=== PATIENT | male | born 1980 | race Caucasian/White ===

== ENCOUNTER → 2016-10-24 | Outpatient (CLI) | payer OTHER ==
[~2016-10-24] MED LIST: ACYCLOVIR800 MG PO; ALBUTEROL0.09 MG/A2 IH; AMOXICILLIN500 MG PO; BENTYL10 MG PO; BIAXIN500 MG PO; CLARITIN10 MG PO; FLEXERIL5 MG PO; FLONASE ALLERG9.9 ML NAS; HUMALOG100 U/ML SC; HYDROCODONE BIT1 T11 PO; KEFLEX500 MG PO; LANTUS100 U/ML SC; MOTRIN800 MG PO; NKHM; NORFLEX100 MG PO; ROBITUSSIN AC 110 ML PO; TRAMADOL HCL50 MG PO; ZITHROMAX250 MG PO
[2016-10-24 10:50] LABS: BASO # 0.1 10*3/uL (0.0-0.1); BASO % 0.7 % (0.0-1.0); EOS # 0.3 10*3/uL (0.0-0.4); EOS % 4.1 % (1.0-4.0); HEMATOCRIT 48.6 % (42.0-52.0); HEMOGLOBIN 17.2 g/dl (14.0-18.0); LYMPH # 2.3 10*3/uL (1.3-4.4); LYMPH % 31.8 % (27.0-41.0); MEAN CELL VOLUME 90.8 fl (80.0-94.0); MEAN CORPUSCULAR HGB 32.1 pg (27.0-31.0); MEAN CORPUSCULAR HGB CONC 35.4 g/dl (33.0-37.0); MEAN PLATELET VOLUME 9.6 fl (9.6-12.3); MONO # 0.5 10*3/uL (0.1-1.0); MONO % 6.8 % (3.0-9.0); NEUT # 4.1 10*3/uL (2.3-7.9); NEUT % 56.3 % (47.0-73.0); PLATELET COUNT AUTOMATED 217 10*3/uL (130-400); RED BLOOD COUNT 5.35 10*6/uL (4.50-5.90); RED CELL DISTRI WIDTH 12.4 % (0-14.5); WHITE BLOOD COUNT 7.3 10*3/uL (4.8-10.8)
[2016-10-24 11:15] LABS: ALBUMIN 4.1 gm/dl (3.1-4.5); ALKALINE PHOSPHATASE 103 U/L (45-117); BILIRUBIN, DIRECT 0.1 mg/dL (0.0-0.2); BILIRUBIN, TOTAL 0.8 mg/dl (0.2-1.0); BUN 12 mg/dl (7-24); CARBON DIOXIDE 30 mmol/L (21-32); CHLORIDE 104 mmol/L (98-107); EST GLOM FILT AFRICAN AMERICAN > 60 ml/min; GLUCOSE 167 mg/dL (65-99); POTASSIUM 3.8 mmol/L (3.5-5.1); SGOT/AST 41 IU/L (3-35); SGPT/ALT 64 U/L (12-78); SODIUM 143 mmol/L (136-145); TOTAL PROTEIN 7.9 gm/dL (6.4-8.2)
[2016-10-24 11:26] LABS: HEMOGLOBIN A1c 5.5 % (4.8-5.6)
== END | disposition home or self-care (01) ==
LOC: LAB 10:22
PROVIDERS: Family Medicine
DX: E11.9 Type 2 diabetes mellitus without complications (principal)

== ENCOUNTER 2019-11-19 21:03 | Inpatient (IN) | payer OTHER ==
[~2019-11-19] VITALS: Ht 185.4 cm; Wt 117.0 kg
[2019-11-19 21:07] VITALS: BP 150/82
[2019-11-19 21:21] VITALS: BP 135/78
[2019-11-19 21:44] LABS: BASO # 0.1 10*3/uL (0.0-0.1); BASO % 0.6 % (0.0-1.0); EOS # 0.1 10*3/uL (0.0-0.4); EOS % 1.6 % (1.0-4.0); HEMATOCRIT 41.9 % (42.0-52.0); HEMOGLOBIN 15.1 g/dl (14.0-18.0); LYMPH # 1.3 10*3/uL (1.3-4.4); LYMPH % 16.1 % (27.0-41.0); MEAN CELL VOLUME 89.7 fl (80.0-94.0); MEAN CORPUSCULAR HGB 32.3 pg (27.0-31.0); MEAN PLATELET VOLUME 10.3 fl (9.6-12.3); MONO # 0.7 10*3/uL (0.1-1.0); MONO % 8.3 % (3.0-9.0); NEUT % 72.9 % (47.0-73.0); PLATELET COUNT AUTOMATED 204 10*3/uL (130-400); RED BLOOD COUNT 4.67 10*6/uL (4.50-5.90); RED CELL DISTRI WIDTH 12.5 % (0-14.5); WHITE BLOOD COUNT 8.2 10*3/uL (4.8-10.8)
[2019-11-19 22:00] LABS: ALBUMIN 3.7 gm/dl (3.1-4.5); ALKALINE PHOSPHATASE 113 U/L (45-117); BUN 10 mg/dl (7-24); CHLORIDE 104 mmol/L (98-107); CREATININE 1.51 mg/dL (0.70-1.30); POTASSIUM 4.6 mmol/L (3.5-5.1); SGOT/AST 52 IU/L (3-35); SGPT/ALT 49 U/L (12-78); SODIUM 134 mmol/L (136-145); TOTAL PROTEIN 7.8 gm/dL (6.4-8.2)
[2019-11-19 23:00] VITALS: BP 114/62
[2019-11-20 00:10] VITALS: BP 123/55
[2019-11-20 01:06] VITALS: BP 110/50
--- NOTE | 2019-11-20 01:59 | NUR ---
PT AMBULATORY TO BATHROOM GAIT STEADY. STATES HE IS FEELING BETTER. BJ MONSIVAIS RN.
[2019-11-20 02:33] VITALS: BP 126/78
--- NOTE | 2019-11-20 02:33 | NUR ---
A 39, admitted to , under the services of JIMMY Rivas DO with a diagnosis of REAGAN; SEVERE SEPSIS; VIRAL URI. Chief complaint is COUGH, COLD & CHILLS AT HOME. Patient arrived via stretcher from ER. Monitor applied. Initial assessment completed. Vital signs taken and recorded. JIMMY RIVAS DO notified of admission to the unit. Orders received. See assessment for past medical history, medications and allergies. Patient and/or family oriented to unit. [facility]. Clothing/patient valuable form completed. DONNA FOX
--- NOTE | 2019-11-20 02:55 | NUR ---
CALLED DR. VELASCO WITH CRITICAL LACTIC ACID OF 2.5.
[2019-11-20] MEDS ORDERED: TRULICITY0.75 MG/0. SC (03:55)
[2019-11-20] MEDS ORDERED: GLUCOPHAGE500 M1 PO (03:56)
[2019-11-20 04:27] LABS: BILIRUBIN NEGATIVE (NEGATIVE); BLOOD NEGATIVE (NEGATIVE); CLARITY CLEAR (CLEAR); COLOR YELLOW (YELLOW); GLUCOSE 2+ (NEGATIVE); KETONE NEGATIVE (NEGATIVE); LEUKO ESTERASE NEGATIVE (NEGATIVE); NITRITE NEGATIVE (NEGATIVE); SPECIFIC GRAVITY 1.005 (1.005-1.030); UROBILINOGEN 0.2 E.U./dl (0.2-1.0)
[2019-11-20 04:33] LABS: URINE AMPHETAMINES < 1000 (1000ng/ml); URINE BARBITURATES < 200 (200ng/ml); URINE BENZODIAZEPINES < 200 (200ng/ml); URINE CANNABINOIDS (THC) < 50 (50ng/ml); URINE COCAINE < 300 (300ng/ml); URINE METHADONE < 300 (300ng/ml); URINE OPIATES < 300 (300ng/ml); WBC 0-2 wbc/hpf (0-5)
[2019-11-20 04:36] LABS: URINE PHENCYCLIDINE < 25 (25ng/ml)
--- NOTE | 2019-11-20 04:47 | NUR ---
URINE SENT FOR UA/C&S, URINE DRUG SCREE, URINE STREP & URINE PNEUMONIAE.
[2019-11-20 05:35] LABS: ALBUMIN 3.5 gm/dl (3.1-4.5); ALKALINE PHOSPHATASE 97 U/L (45-117); BUN 9 mg/dl (7-24); CHLORIDE 107 mmol/L (98-107); CHOLESTEROL 134 mg/dL (<200); CREATININE 1.32 mg/dL (0.70-1.30); FREE T4 0.63 ng/dl (0.76-1.46); HDL CHOLESTEROL 25 mg/dl (40-60); LDL CHOLESTEROL 73 mg/dL (9-159); PHOSPHOROUS 2.4 mg/dL (2.5-4.9); SGOT/AST 19 IU/L (3-35); SGPT/ALT 37 U/L (12-78); SODIUM 139 mmol/L (136-145); TOTAL PROTEIN 7.2 gm/dL (6.4-8.2); TRIGLYCERIDES 181 mg/dl (<150); VLDL CHOLESTEROL 36 mg/dL (6-40)
[2019-11-20 06:14] LABS: BASO % 0.5 % (0.0-1.0); EOS % 0.1 % (1.0-4.0); HEMATOCRIT 40.5 % (42.0-52.0); HEMOGLOBIN 13.7 g/dl (14.0-18.0); LYMPH # 1.4 10*3/uL (1.3-4.4); LYMPH % 18.9 % (27.0-41.0); MEAN CELL VOLUME 90.8 fl (80.0-94.0); MEAN CORPUSCULAR HGB 30.7 pg (27.0-31.0); MEAN CORPUSCULAR HGB CONC 33.8 g/dl (33.0-37.0); MEAN PLATELET VOLUME 10.3 fl (9.6-12.3); MONO # 0.7 10*3/uL (0.1-1.0); MONO % 9.4 % (3.0-9.0); NEUT # 5.3 10*3/uL (2.3-7.9); NEUT % 70.7 % (47.0-73.0); PLATELET COUNT AUTOMATED 190 10*3/uL (130-400); RED BLOOD COUNT 4.46 10*6/uL (4.50-5.90); RED CELL DISTRI WIDTH 12.5 % (0-14.5); WHITE BLOOD COUNT 7.5 10*3/uL (4.8-10.8)
--- NOTE | 2019-11-20 07:31 | NUR ---
PT. REFUSES INSULIN COVERAGE AT THIS TIME. REQUESTING METFORMIN.
[2019-11-20 07:44] LABS: VITAMIN D, 25-HYDROXY 19.2 ng/mL (30-100)
--- NOTE | 2019-11-20 10:26 | NUR ---
Nurse to nurse report given to EVERETT Iyv.
--- NOTE | 2019-11-20 10:30 | NUR ---
Left message at [facility] notifying [facility] that patient is being transferred to [facility].
--- NOTE | 2019-11-20 11:00 | NUR ---
TOOK OVER CARE OF PT AT THIS TIME. PT RESTING IN BED. RESPIRATIONS EASY AND UNLABORED ON ROOM AIR. COUGH NOTED, ASSESSMENT COMPLETE. PT DENIES PAIN. CALL LIGHT IN REACH.
--- NOTE | 2019-11-20 11:51 | NUR ---
PT GIVEN TYLENOL AT THIS TIME FOR HEADACHE. WILL MONITOR FOR EFFECTIVENESS.
[2019-11-20 12:00] VITALS: BP 118/79
--- NOTE | 2019-11-20 12:50 | NUR ---
TYLENOL EFFECTIVE PER PT.
--- NOTE | 2019-11-20 15:03 | NUR ---
Shift chart check completed.
[2019-11-20 16:00] VITALS: BP 129/80
--- NOTE | 2019-11-20 18:09 | NUR ---
PT RESTING IN BED, NO COMPLAINTS VOICED AT THIS TIME. CALL LIGHT IN REACH.
[2019-11-20 20:00] VITALS: BP 133/80
--- NOTE | 2019-11-20 20:30 | NUR ---
DR COREY NOTIFIED OF POSITIVE BLOOD CULTURES
--- NOTE | 2019-11-20 23:14 | NUR ---
TYLENOL GIVEN PER PT REQUEST FOR C/O HEADACHE. CALL LIGHT IN REACH.
[2019-11-21] VITALS: BP 129/89
--- NOTE | 2019-11-21 01:05 | NUR ---
TYLENOL EFFECTIVE FOR PAIN. PT SLEEPING, RESP EASY AND REGULAR ON RA. CALL LIGHT IN REACH.
[2019-11-21 07:03] LABS: BASO # 0.1 10*3/uL (0.0-0.1); BASO % 0.7 % (0.0-1.0); EOS # 0.4 10*3/uL (0.0-0.4); EOS % 5.8 % (1.0-4.0); HEMATOCRIT 40.9 % (42.0-52.0); LYMPH # 2.5 10*3/uL (1.3-4.4); LYMPH % 36.8 % (27.0-41.0); MEAN CELL VOLUME 92.3 fl (80.0-94.0); MEAN CORPUSCULAR HGB 31.6 pg (27.0-31.0); MEAN CORPUSCULAR HGB CONC 34.2 g/dl (33.0-37.0); MEAN PLATELET VOLUME 9.8 fl (9.6-12.3); MONO # 0.9 10*3/uL (0.1-1.0); MONO % 12.5 % (3.0-9.0); NEUT % 43.8 % (47.0-73.0); PLATELET COUNT AUTOMATED 177 10*3/uL (130-400); RED BLOOD COUNT 4.43 10*6/uL (4.50-5.90); RED CELL DISTRI WIDTH 12.9 % (0-14.5); WHITE BLOOD COUNT 6.9 10*3/uL (4.8-10.8)
--- NOTE | 2019-11-21 07:15 | NUR ---
Arrived on shift, introduced to patient, white board updated, bed in low locked, position, call light withing reach. no needs voiced at this time.
[2019-11-21 07:35] LABS: BUN 9 mg/dl (7-24); CHLORIDE 110 mmol/L (98-107); CREATININE 1.05 mg/dL (0.70-1.30); SODIUM 142 mmol/L (136-145)
[2019-11-21 08:00] VITALS: BP 130/78
--- NOTE | 2019-11-21 09:00 | NUR ---
[employer] in to talk to patient. Patient states lives at home with . There are no steps in the home. Physician: shwetha durant [facility]acy: [facility] Home health services: none Patient's level of ADLs: INDEPENDENT Patient has working utilities: all working DME: none Follow-up physician's appointment after d/c: will be made by hospitalist nurse director upon discharge Does patient want to access PORTAL?: no Discharge plan discussed with patient, he lives at home with he is independent in adls and ambulation, works, drives, he states he will return home when medically stable and denies any home needs. SHANTI MEEHAN
--- NOTE | 2019-11-21 09:23 | NUR ---
Shift chart check completed.
[2019-11-21 12:00] VITALS: BP 120/85
--- NOTE | 2019-11-21 13:31 | NUR ---
PATIENT C/O HEADACHE MEDICATED WITH TYLENOL ORDERED.
--- NOTE | 2019-11-21 13:32 | NUR ---
PATIENT C/O HEADACHE, MEDICATED WITH TYLENOL ORDERED PRN.
[2019-11-21 16:00] VITALS: BP 133/79
[2019-11-21 20:00] VITALS: BP 112/67
[2019-11-22] VITALS: BP 113/60; BP 126/74
--- NOTE | 2019-11-22 07:05 | NUR ---
ARRIVED ON SHIFT, INTRODUCED TO PATIENT, BED IN LOW LOCKED POSITION, CALL LIGHT WITHIN REACH, NO NEEDS VOICED AT THIS TIME. WHITE BOARD UPDATED.
[2019-11-22 08:00] VITALS: BP 124/62
[2019-11-22 08:00] LABS: BASO # 0.1 10*3/uL (0.0-0.1); BASO % 0.7 % (0.0-1.0); EOS # 0.5 10*3/uL (0.0-0.4); HEMATOCRIT 42.6 % (42.0-52.0); HEMOGLOBIN 14.6 g/dl (14.0-18.0); LYMPH # 2.8 10*3/uL (1.3-4.4); LYMPH % 37.5 % (27.0-41.0); MEAN CELL VOLUME 93.4 fl (80.0-94.0); MEAN CORPUSCULAR HGB CONC 34.3 g/dl (33.0-37.0); MEAN PLATELET VOLUME 10.2 fl (9.6-12.3); MONO # 0.6 10*3/uL (0.1-1.0); MONO % 8.2 % (3.0-9.0); NEUT # 3.5 10*3/uL (2.3-7.9); NEUT % 46.7 % (47.0-73.0); PLATELET COUNT AUTOMATED 207 10*3/uL (130-400); RED BLOOD COUNT 4.56 10*6/uL (4.50-5.90); RED CELL DISTRI WIDTH 12.8 % (0-14.5); WHITE BLOOD COUNT 7.5 10*3/uL (4.8-10.8)
[2019-11-22 08:50] LABS: BUN 9 mg/dl (7-24); CHLORIDE 106 mmol/L (98-107); CREATININE 1.13 mg/dL (0.70-1.30); POTASSIUM 3.8 mmol/L (3.5-5.1); SODIUM 140 mmol/L (136-145)
[2019-11-22] MEDS ORDERED: DOXYCYCLINE100 M3 PO (10:42)
[2019-11-22] MEDS ORDERED: TAMIFLU 75MG CA75 MG PO (10:42)
[2019-11-22 12:00] VITALS: BP 132/80
--- NOTE | 2019-11-22 13:40 | NUR ---
Discharge instructions reviewed with patient/family. Patient receptive and verbalizes understanding. Follow-up care arranged. Written instructions given to patient/family, IV REMOVED, REFUSED W/C FOR DISCHARGE. DANIELA MENJIVAR
== END 2019-11-22 13:40 | disposition home or self-care (01) | DRG 871 ==
LOC: ED 21:03 → 5E 11-20 01:45 → EDHOLD 11-20 01:45 → 4E 11-20 02:17 → 5E 11-20 11:22
PROVIDERS: Emergency Medicine; Internal Medicine; ADMIT Internal Medicine
DX: A41.9 Sepsis, unspecified organism (principal); N17.0 Acute kidney failure with tubular necrosis; E87.1 Hypo-osmolality and hyponatremia; R65.20 Severe sepsis without septic shock; E80.6 Other disorders of bilirubin metabolism; E11.65 Type 2 diabetes mellitus with hyperglycemia; K76.0 Fatty (change of) liver, not elsewhere classified; J06.9 Acute upper respiratory infection, unspecified; E83.39 Other disorders of phosphorus metabolism; R09.02 Hypoxemia; B95.61 Methicillin susceptible Staphylococcus aureus infection as the cause of diseases classified elsewhere; Z79.899 Other long term (current) drug therapy; Z79.4 Long term (current) use of insulin; Z90.49 Acquired absence of other specified parts of digestive tract; Z98.52 Vasectomy status; Z82.49 Family history of ischemic heart disease and other diseases of the circulatory system

== ENCOUNTER → 2020-08-27 | Outpatient (CLI) | payer OTHER ==
[~2020-08-27] MED LIST changes: +DOXYCYCLINE100 M3 PO; +GLUCOPHAGE500 M1 PO; +TAMIFLU 75MG CA75 MG PO; +TRULICITY0.75 MG/0. SC
== END | disposition home or self-care (01) ==
LOC: COVID19 03:10
PROVIDERS: ATTEND Physician Assistant Medical
DX: U07.1 COVID-19 (principal)

== ENCOUNTER 2021-02-14 21:21 | Emergency (ER) | payer OTHER ==
[2021-02-14 23:25] LABS: BASO # 0.1 10*3/uL (0.0-0.1); BASO % 0.4 % (0.0-1.0); EOS # 0.1 10*3/uL (0.0-0.4); EOS % 0.9 % (1.0-4.0); HEMATOCRIT 46.5 % (42.0-52.0); LYMPH # 0.6 10*3/uL (1.3-4.4); LYMPH % 5.5 % (27.0-41.0); MEAN CELL VOLUME 87.9 fl (80.0-94.0); MEAN CORPUSCULAR HGB 31.4 pg (27.0-31.0); MEAN CORPUSCULAR HGB CONC 35.7 g/dl (33.0-37.0); MEAN PLATELET VOLUME 10.2 fl (9.6-12.3); MONO # 0.7 10*3/uL (0.1-1.0); MONO % 5.8 % (3.0-9.0); NEUT # 9.7 10*3/uL (2.3-7.9); PLATELET COUNT AUTOMATED 215 10*3/uL (130-400); RED BLOOD COUNT 5.29 10*6/uL (4.50-5.90); RED CELL DISTRI WIDTH 12.3 % (0-14.5); WHITE BLOOD COUNT 11.2 10*3/uL (4.8-10.8)
[2021-02-14 23:40] LABS: ALKALINE PHOSPHATASE 158 U/L (45-117); BUN 14 mg/dl (7-24); CHLORIDE 103 mmol/L (98-107); CREATININE 1.27 mg/dL (0.70-1.30); POTASSIUM 3.9 mmol/L (3.5-5.1); SGOT/AST 23 IU/L (3-35); SGPT/ALT 46 U/L (12-78); SODIUM 134 mmol/L (136-145); TOTAL PROTEIN 8.2 gm/dL (6.4-8.2)
[2021-02-15 00:28] LABS: BILIRUBIN Negative (Negative); BLOOD Negative (Negative); CLARITY Clear (Clear); COLOR Yellow (Yellow); GLUCOSE 3+ (Negative); KETONE 2+ (Negative); LEUKO ESTERASE Negative (Negative); NITRITE Negative (Negative); SPECIFIC GRAVITY >= 1.030 (1.001-1.030); UROBILINOGEN 0.2 E.U./dl (0.0-1.0)
[2021-02-15 00:42] LABS: BACTERIA TRACE; EPITHELIAL CELLS 0-2
== END 2021-02-15 03:03 | disposition home or self-care (01) ==
LOC: ED 21:21
PROVIDERS: Emergency Medicine
DX: E11.65 Type 2 diabetes mellitus with hyperglycemia (principal); E66.9 Obesity, unspecified; Z79.899 Other long term (current) drug therapy; Z79.2 Long term (current) use of antibiotics; Z68.30 Body mass index [BMI] 30.0-30.9, adult; Z90.49 Acquired absence of other specified parts of digestive tract

== ENCOUNTER 2021-03-25 13:01 | Emergency (ER) | payer OTHER ==
[~2021-03-25] VITALS: Wt 108.9 kg
[2021-03-25] MEDS ORDERED: CYCLOBENZAPRINE5 M3 PO (15:50)
[2021-03-25] MEDS ORDERED: MEDROL DOSEPAK4 MG PO (15:50)
== END 2021-03-25 15:53 | disposition home or self-care (01) ==
LOC: ED 13:01
DX: M54.12 Radiculopathy, cervical region (principal); Z79.899 Other long term (current) drug therapy; Z98.890 Other specified postprocedural states; Z79.84 Long term (current) use of oral hypoglycemic drugs

== ENCOUNTER 2022-12-11 13:41 | Emergency (ER) | payer OTHER ==
[~2022-12-11] VITALS: Ht 185.4 cm; Wt 113.4 kg
[~2022-12-11 13:41] MED LIST changes: +CYCLOBENZAPRINE5 M3 PO; +MEDROL DOSEPAK4 MG PO
[2022-12-11] MEDS ORDERED: NAPROSYN500 MG PO (15:27)
[2022-12-11] MEDS ORDERED: ZANAFLEX4 MG PO (15:27)
== END 2022-12-11 15:30 | disposition home or self-care (01) ==
LOC: ED 13:41
DX: M54.42 Lumbago with sciatica, left side (principal); E11.9 Type 2 diabetes mellitus without complications; Z90.49 Acquired absence of other specified parts of digestive tract; Z98.890 Other specified postprocedural states